=== PATIENT | female | born 1945 | race Caucasian/White ===

== ENCOUNTER 2024-07-04 13:04 | Inpatient (IN) | payer MEDICARE ==
[~2024-07-04] VITALS: Ht 160 cm; Wt 68.0 kg
[2024-07-04 14:13] LABS: BASOPHILS % (AUTO) 0.4 % (0.0-2.0); EOSINOPHILS % (AUTO) 0.1 % (0.0-7.0); HEMATOCRIT 41.3 % (31.2-41.9); HEMOGLOBIN 13.9 g/dL (10.9-14.3); LYMPHOCYTES # (AUTO) 1.1 K/uL (0.8-4.8); MEAN CORPUSCULAR HEMOGLOBIN 31.4 uug (24.7-32.8); MEAN CORPUSCULAR HGB CONC 34 g/dL (32.3-35.6); MEAN CORPUSCULAR VOLUME 93.5 fL (75.5-95.3); MONOCYTES # (AUTO) 0.5 K/uL (0.1-1.30); MONOCYTES % (AUTO) 6.8 % (0.0-11.0); NEUTROPHILS # (AUTO) 5.9 K/uL (1.8-8.9); NEUTROPHILS % (AUTO) 77.7 % (38.5-71.5); PLATELET COUNT (AUTO) 207 K/uL (179-408); RED BLOOD CELL COUNT(AUTO) 4.41 MIL/uL (3.63-4.92); RED CELL DISTRIBUTION WIDTH 16.1 % (12.3-17.7); WHITE BLOOD COUNT (AUTO) 7.7 K/uL (3.8-11.8)
[2024-07-04 14:16] LABS: DIFFERENTIAL COMMENT 1
[2024-07-04] MEDS ORDERED: ALBUTEROL SULFATE 2.5 MG/3 ML NEBU ONE ×2 (14:18→14:35)
[2024-07-04] MEDS ORDERED: IPRATROPIUM BROMIDE 0.5 MG/2.5 ML NEBU ONE (14:18)
[2024-07-04 14:20] VITALS: O2SAT 96
[2024-07-04] MEDS: IV NORMAL SALINE 1000 ML BAG IV ONE (14:22)
[2024-07-04 14:32] LABS: CALCIUM 8.7 mg/dL (8.5-10.1); CARBON DIOXIDE 22 mmol/L (21-32); CHLORIDE 106 mmol/L (98-107); CREATININE 1.4 mg/dL (0.6-1.3); GLUCOSE 218 mg/dL (74-106); NT-PRO BNP 501 pg/mL (0-125); POTASSIUM 4.3 mmol/L (3.5-5.1); SODIUM SERUM 144 mmol/L (136-145); UREA NITROGEN, BLOOD 30 mg/dL (7-18)
[2024-07-04 14:40] LABS: LACTIC ACID 2.1 mmol/L (0.4-2.0)
[2024-07-04 14:43] LABS: ABG BASE EXCESS -3.3 mmol/L (-2.0-3.0); ABG HCO3 20.1 mmol/L (21.0-28.0); ABG PCO2 31.9 mmHg (32.0-45.0); ABG PH 7.418 (7.350-7.450); ABG PO2 107.1 mmHg (83.0-108.0); ABG SITE LEFT RADIAL; ABG TOTAL HEMOGLOBIN 14.5 G/dL (12.0-16.0); COHb 0.8 % (0.5-1.5); MetHb 0.1 % (0.0-1.5); O2Hb 96.8 % (94.0-98.0)
[2024-07-04] MEDS: IPRATROPIUM BROMIDE 0.5 MG/2.5 ML NEBU NEB ONE (14:44)
[2024-07-04] MEDS: ALBUTEROL SULFATE 2.5 MG/3 ML NEBU NEB ONE (14:44)
[2024-07-04 14:50] VITALS: O2SAT 99
[2024-07-04 17:08] LABS: BILIRUBIN,DIRECT 0.1 mg/dL (0.0-0.2); BILIRUBIN,TOTAL 0.5 mg/dL (0.2-1.0)
[2024-07-04] MEDS: IV NS 1000 ML 1,000 ML IV ONE (17:51)
[2024-07-04] MEDS ORDERED: CEFTRIAXONE /D5W 50ML IVPB **ER PYXIS IV ONE (18:50)
[2024-07-04] MEDS: CEFTRIAXONE 1 G in IV DEXTROSE 5% 50 ML IV ONE (18:55)
[2024-07-04 19:15] LABS: *BILIRUBIN,URIN NEGATIVE (NEGATIVE); *BLOOD, URINE 2+ (NEGATIVE); *CLARITY,URINE CLEAR (CLEAR); *COLOR,URINE YELLOW (YELLOW); *KETONES,URINE NEGATIVE (NEGATIVE); *PROTEIN,URINE 2+ (NEGATIVE); *UROBILINOGEN,URINE 0.2 E.U./dl (NORMAL); LEUKOCYTE ESTERASE ,URINE 1+ (NEGATIVE); NITRITE, URINE POSITIVE (NEGATIVE); PH,URINE 5.5 (5.0-8.0); UGLUCOSE NEGATIVE (NEGATIVE)
[2024-07-04 19:27] LABS: WBC,URINE 20-50 /HPF (0-3)
[2024-07-04 19:28] LABS: BACTERIA,URINE MANY /HPF (NONE SEEN)
[2024-07-04 19:29] LABS: SQUAMOUS EPITHELIAL CELL,UR FEW /HPF (NONE SEEN)
[2024-07-04] MEDS ORDERED: ONDANSETRON 4 MG/2 ML VIAL IV PRN (20:00)
[2024-07-04] MEDS ORDERED: ACETAMINOPHEN 325 MG TABLET PO PRN (20:00)
[2024-07-04] MEDS ORDERED: MAGNESIUM HYDROXIDE 30 ML LIQUID UDC PO PRN (20:00)
[2024-07-04] MEDS ORDERED: DEXTROSE 50% 50 ML DISP.SYRIN IV PRN (20:00)
[2024-07-04] MEDS ORDERED: AZITHROMYCIN 500MG/ D5W 250ML IVPB **ER PYXIS ONLY IV ONE (21:42)
[2024-07-04] MEDS: AZITHROMYCIN IV 500 MG in IV DEXTROSE 5% 250 ML IV ONE (21:49)
[2024-07-04] MEDS ORDERED: MEROPENEM 500 MG in IV NORMAL SALINE 50 ML IV SCH (22:00)
[2024-07-04] MEDS: BLOOD SUGAR DIAGNOSTIC 1 EACH STRIP VI SCH (22:01)
[2024-07-04] MEDS ORDERED: INSULIN REGULAR, HUMAN 1000 UNIT/10 ML VIAL ONE (22:06)
[2024-07-04] MEDS: INSULIN REGULAR, HUMAN 1000 UNIT/10 ML VIAL SQ PRN (22:13)
[2024-07-04] MEDS ORDERED: MEROPENEM 1GM/NS 100ML IVPB **ER PYXIS ONLY IV ONE (23:19)
[2024-07-04] MEDS: MEROPENEM 1 G in IV NORMAL SALINE 100 ML IV SCH (23:22)
[2024-07-04 23:50] VITALS: BP 113/51; TEMP 98.3; O2SAT 92
[2024-07-05] VITALS (10 sets, daily range): BP systolic 98–158; BP diastolic 38–94; TEMP 97.1–99.5; O2SAT 90–99
[2024-07-05] MEDS: IV NS 1000 ML 1,000 ML IV PRN (01:32)
[2024-07-05] MEDS: HYDROCODONE/APAP 5-325MG TABLET PO PRN (01:50)
[2024-07-05] MEDS ORDERED: PIPERACILLIN/TAZOBACTAM/D5W 50 ML IV ONE (05:28)
[2024-07-05] MEDS: PANTOPRAZOLE SODIUM 40 MG TABLET.DR PO SCH (06:37)
[2024-07-05 06:54] LABS: BASOPHILS % (AUTO) 0.4 % (0.0-2.0); EOSINOPHILS # (AUTO) 0.1 K/uL (0.0-0.7); EOSINOPHILS % (AUTO) 3.1 % (0.0-7.0); HEMATOCRIT 37.5 % (31.2-41.9); HEMOGLOBIN 12.6 g/dL (10.9-14.3); LYMPHOCYTES % (AUTO) 23.2 % (20.5-51.5); MEAN CORPUSCULAR HGB CONC 34 g/dL (32.3-35.6); MEAN CORPUSCULAR VOLUME 94.9 fL (75.5-95.3); MONOCYTES # (AUTO) 0.3 K/uL (0.1-1.30); MONOCYTES % (AUTO) 6.3 % (0.0-11.0); NEUTROPHILS # (AUTO) 2.9 K/uL (1.8-8.9); PLATELET COUNT (AUTO) 168 K/uL (179-408); RED BLOOD CELL COUNT(AUTO) 3.95 MIL/uL (3.63-4.92); RED CELL DISTRIBUTION WIDTH 15.8 % (12.3-17.7); WHITE BLOOD COUNT (AUTO) 4.3 K/uL (3.8-11.8)
[2024-07-05 07:14] LABS: DIFFERENTIAL COMMENT 1
[2024-07-05 07:18] LABS: ALANINE AMINOTRANSFERASE 12 U/L (14-59); ALBUMIN 2.7 g/dL (3.4-5.0); ALKALINE PHOSPHATASE 52 U/L (50-136); ASPARTATE AMINOTRANSFERASE 23 U/L (15-37); BILIRUBIN,TOTAL 0.4 mg/dL (0.2-1.0); CALCIUM 7.8 mg/dL (8.5-10.1); CARBON DIOXIDE 25 mmol/L (21-32); CHLORIDE 111 mmol/L (98-107); CHOLESTEROL 111 mg/dL (<200); GLUCOSE 116 mg/dL (74-106); HDL CHOLESTEROL 35 mg/dL (40-60); MAGNESIUM 1.8 mg/dL (1.8-2.4); PHOSPHOROUS 3.8 mg/dL (2.5-4.9); POTASSIUM 4.2 mmol/L (3.5-5.1); SODIUM SERUM 147 mmol/L (136-145); TOTAL PROTEIN, SERUM 7.1 g/dL (6.4-8.2); TRIGLYCERIDES 162 MG/DL (30-150); UREA NITROGEN, BLOOD 22 mg/dL (7-18)
[2024-07-05] MEDS ORDERED: MULT-1119 PO (07:18)
[2024-07-05] MEDS ORDERED: MEMA10TA PO (07:18)
[2024-07-05] MEDS ORDERED: AMLO5TAB4 PO (07:18)
[2024-07-05] MEDS ORDERED: METF-442 PO (07:18)
[2024-07-05] MEDS ORDERED: ALLO300T2 PO (07:18)
[2024-07-05] MEDS ORDERED: DONE10TA11 PO (07:18)
[2024-07-05] MEDS ORDERED: LEVE750T4 PO (07:18)
[2024-07-05] MEDS ORDERED: SIMV20TA2 PO (07:25)
[2024-07-05] MEDS ORDERED: MAG-55 PO (07:25)
[2024-07-05] MEDS ORDERED: NEOM28.38 TP (07:25)
[2024-07-05] MEDS ORDERED: LOPE-195 PO (07:25)
[2024-07-05] MEDS ORDERED: ACET325C7 PO (07:25)
[2024-07-05] MEDS ORDERED: MAGN400O6 PO (07:25)
[2024-07-05] MEDS ORDERED: SERT100T PO (07:25)
[2024-07-05] MEDS ORDERED: ASPI1CPM PO (07:27)
[2024-07-05 08:33] LABS: THYROID STIMULATING HORMONE 2.292 mIU/mL (0.358-3.740)
[2024-07-05] MEDS ORDERED: OSELTAMIVIR PHOSPHATE 75 MG CAPSULE PO SCH (10:30)
[2024-07-05] MEDS ORDERED: LOPERAMIDE HCL 2 MG CAPSULE PO PRN (11:15)
[2024-07-05] MEDS: OSELTAMIVIR NG/GT 30 MG/5 ML LIQ PO SCH (11:34)
[2024-07-05] MEDS: ASPIRIN/DIPYRIDAMOLE 25/200 MG CAPSULE PO SCH (11:34)
[2024-07-05] MEDS: ALLOPURINOL 300 MG TABLET PO SCH (11:34)
[2024-07-05] MEDS: MULTIVITAMINS,THERAPEUTIC TABLET PO SCH (11:35)
[2024-07-05] MEDS: SERTRALINE HCL 100 MG TABLET PO SCH (11:35)
[2024-07-05] MEDS: levETIRAcetam 500 MG TABLET PO SCH (11:35)
[2024-07-05] MEDS: MEMANTINE HCL 10 MG TABLET PO SCH (11:35)
[2024-07-05] MEDS: DONEPEZIL 10 MG TABLET PO SCH (11:35)
[2024-07-05] MEDS: GUAIFENESIN LA 600 MG TABLET.SA PO SCH (12:08)
[2024-07-05] MEDS: AMLODIPINE 5 MG TABLET PO SCH (12:08)
[2024-07-05] MEDS: METFORMIN HCL 500 MG TABLET PO SCH (18:27)
[2024-07-05] MEDS: SIMVASTATIN 20 MG TABLET PO SCH (21:31)
[2024-07-05] MEDS: ALBUTEROL SULFATE 2.5 MG/3 ML NEBU NEB PRN (22:09)
[2024-07-06] VITALS (7 sets, daily range): BP systolic 117–148; BP diastolic 46–71; TEMP 97–98.6; O2SAT 91–95
[2024-07-06 06:49] LABS: BASOPHILS % (AUTO) 0.3 % (0.0-2.0); EOSINOPHILS # (AUTO) 0.1 K/uL (0.0-0.7); EOSINOPHILS % (AUTO) 1.7 % (0.0-7.0); HEMATOCRIT 35.5 % (31.2-41.9); HEMOGLOBIN 11.9 g/dL (10.9-14.3); LYMPHOCYTES # (AUTO) 1.1 K/uL (0.8-4.8); LYMPHOCYTES % (AUTO) 25.3 % (20.5-51.5); MEAN CORPUSCULAR HEMOGLOBIN 31.5 uug (24.7-32.8); MEAN CORPUSCULAR HGB CONC 34 g/dL (32.3-35.6); MEAN CORPUSCULAR VOLUME 93.7 fL (75.5-95.3); MONOCYTES # (AUTO) 0.3 K/uL (0.1-1.30); MONOCYTES % (AUTO) 6.1 % (0.0-11.0); NEUTROPHILS # (AUTO) 2.8 K/uL (1.8-8.9); NEUTROPHILS % (AUTO) 66.6 % (38.5-71.5); PLATELET COUNT (AUTO) 176 K/uL (179-408); RED BLOOD CELL COUNT(AUTO) 3.79 MIL/uL (3.63-4.92); RED CELL DISTRIBUTION WIDTH 15.6 % (12.3-17.7); WHITE BLOOD COUNT (AUTO) 4.3 K/uL (3.8-11.8)
[2024-07-06 07:05] LABS: CALCIUM 7.8 mg/dL (8.5-10.1); CARBON DIOXIDE 22 mmol/L (21-32); CHLORIDE 109 mmol/L (98-107); CREATININE 0.9 mg/dL (0.6-1.3); GLUCOSE 108 mg/dL (74-106); MAGNESIUM 1.5 mg/dL (1.8-2.4); PHOSPHOROUS 2.6 mg/dL (2.5-4.9); SODIUM SERUM 142 mmol/L (136-145); UREA NITROGEN, BLOOD 20 mg/dL (7-18)
[2024-07-06 07:08] LABS: DIFFERENTIAL COMMENT 1
[2024-07-06] MEDS: MAGNESIUM OXIDE 400 MG TABLET PO ONE (13:00)
[2024-07-07] VITALS (8 sets, daily range): BP systolic 121–148; BP diastolic 64–82; TEMP 96–97.8; O2SAT 91–99
[2024-07-07] MEDS: MAGNESIUM SULFATE/D5W 100 ML IV SCH (01:22)
[2024-07-07 07:47] LABS: CALCIUM 8.1 mg/dL (8.5-10.1); CARBON DIOXIDE 19 mmol/L (21-32); CHLORIDE 108 mmol/L (98-107); CREATININE 0.8 mg/dL (0.6-1.3); GLUCOSE 105 mg/dL (74-106); MAGNESIUM 2.1 mg/dL (1.8-2.4); POTASSIUM 3.6 mmol/L (3.5-5.1); SODIUM SERUM 141 mmol/L (136-145); UREA NITROGEN, BLOOD 11 mg/dL (7-18)
[2024-07-08] VITALS: BP 135/71; TEMP 97.8; O2SAT 94
[2024-07-08 07:42] LABS: BASOPHILS % (AUTO) 0.4 % (0.0-2.0); EOSINOPHILS # (AUTO) 0.2 K/uL (0.0-0.7); EOSINOPHILS % (AUTO) 4.1 % (0.0-7.0); HEMATOCRIT 37.6 % (31.2-41.9); HEMOGLOBIN 13.1 g/dL (10.9-14.3); LYMPHOCYTES # (AUTO) 1.8 K/uL (0.8-4.8); LYMPHOCYTES % (AUTO) 34.8 % (20.5-51.5); MEAN CORPUSCULAR HEMOGLOBIN 32.2 uug (24.7-32.8); MEAN CORPUSCULAR HGB CONC 35 g/dL (32.3-35.6); MEAN CORPUSCULAR VOLUME 92.3 fL (75.5-95.3); MONOCYTES # (AUTO) 0.4 K/uL (0.1-1.30); MONOCYTES % (AUTO) 8.3 % (0.0-11.0); NEUTROPHILS # (AUTO) 2.7 K/uL (1.8-8.9); NEUTROPHILS % (AUTO) 52.4 % (38.5-71.5); PLATELET COUNT (AUTO) 172 K/uL (179-408); RED BLOOD CELL COUNT(AUTO) 4.08 MIL/uL (3.63-4.92); RED CELL DISTRIBUTION WIDTH 15.5 % (12.3-17.7); WHITE BLOOD COUNT (AUTO) 5.2 K/uL (3.8-11.8)
[2024-07-08 07:45] VITALS: BP 170/78; TEMP 97.3; O2SAT 95
[2024-07-08 07:58] LABS: DIFFERENTIAL COMMENT 1
[2024-07-08 07:59] LABS: CALCIUM 8.1 mg/dL (8.5-10.1); CARBON DIOXIDE 22 mmol/L (21-32); CHLORIDE 109 mmol/L (98-107); CREATININE 0.6 mg/dL (0.6-1.3); GLUCOSE 93 mg/dL (74-106); MAGNESIUM 1.9 mg/dL (1.8-2.4); PHOSPHOROUS 2.6 mg/dL (2.5-4.9); POTASSIUM 3.5 mmol/L (3.5-5.1); SODIUM SERUM 144 mmol/L (136-145); UREA NITROGEN, BLOOD 7 mg/dL (7-18)
[2024-07-08 08:53] VITALS: BP 153/68; O2SAT 95
[2024-07-08 11:50] VITALS: BP 163/79; TEMP 97.9; O2SAT 98
[2024-07-08] MEDS ORDERED: HYDR-894 PO (14:20)
[2024-07-08] MEDS ORDERED: CEPH250C PO (14:20)
[2024-07-08] MEDS ORDERED: OSEL75CA PO (14:23)
[2024-07-08] MEDS: hydrALAZINE HCL 25 MG TABLET PO SCH (14:43)
[2024-07-08 15:49] VITALS: BP 149/68; TEMP 97.7; O2SAT 98
[2024-07-08] MEDS ORDERED: MEROPENEM 0.5 G in IV NORMAL SALINE 50 ML IV SCH (17:00)
[2024-07-08] MEDS ORDERED: OSELTAMIVIR PHOSPHATE 75 MG CAPSULE PO SCH (21:00)
[2024-07-08] MEDS ORDERED: CEphaleXIN 250 MG CAPSULE PO SCH (22:00)
== END 2024-07-08 17:44 | DRG 193 ==
LOC: ER 13:04 → TELE3 20:00 → MEDSURG3 07-08 11:02
PROVIDERS: ADMIT Internal Medicine; ATTEND Nurse Practitioner Acute Care
DX: J10.08 Influenza due to other identified influenza virus with other specified pneumonia (principal); G92.8 Other toxic encephalopathy; J96.91 Respiratory failure, unspecified with hypoxia; N17.0 Acute kidney failure with tubular necrosis; N39.0 Urinary tract infection, site not specified; E87.20 Acidosis, unspecified; I69.351 Hemiplegia and hemiparesis following cerebral infarction affecting right dominant side; F03.93 Unspecified dementia, unspecified severity, with mood disturbance; J18.0 Bronchopneumonia, unspecified organism; G40.909 Epilepsy, unspecified, not intractable, without status epilepticus; I25.2 Old myocardial infarction; E78.5 Hyperlipidemia, unspecified; Z79.84 Long term (current) use of oral hypoglycemic drugs; Z79.899 Other long term (current) drug therapy; I25.10 Atherosclerotic heart disease of native coronary artery without angina pectoris; Z88.0 Allergy status to penicillin; E11.9 Type 2 diabetes mellitus without complications
CPT/HCPCS: 36415; 36600; 71045; 83605; 83735; 84100; 84443; 84484; 85025; 87040; 94640; 94760; C1758; G0378; J0456; J0696; J1815; J2185; J2543; J3475; J3590; J7040